=== PATIENT | female | born 1950 | race Caucasian/White ===

== ENCOUNTER → 2016-07-01 | Outpatient (CLI) | payer MEDICARE ==
[~2016-07-01] MED LIST: ASCORBIC ACID500 MG PO; BACITRACIN OPH3.5 GM TP; CALTRATE-600 W600 MG PO; IRON325 M1 PO; SENOKOT S1 TAB PO; THERA1 EACH PO; TYLENOL325 MG PO; ULTRAM DPS50 MG PO; VITAMIN D31000 UNIT PO
== END | disposition home or self-care (01) ==
LOC: RAD.S 06-28 09:40
DX: Z12.31 Encounter for screening mammogram for malignant neoplasm of breast (principal); R92.1 Mammographic calcification found on diagnostic imaging of breast